=== PATIENT | male | born 1990 | race Caucasian/White ===

== ENCOUNTER 2017-02-12 06:13 | Inpatient (IN) | payer BC, OTHER ==
[~2017-02-12] VITALS: Ht 177.8 cm; Wt 83.0 kg
--- NOTE | 2017-02-12 06:46 | EMERGENCY ROOM VISIT NOTE ---
History Report prepared by Karely: Theresa Glover Under the Supervision of: Dr. Maurice Matute M.D. 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 Per police , the patient called Crisis and reported that he wanted to hang himself. When police arrived on scene they report that he was gagging and a belt was set up in his bedroom. The patient states that he was talking to Crisis on speaker phone and had the rope around his neck and dropped to his knees and decided that he wanted to . He reports that he lost consciousness and saw colors. He notes that he has wanted to kill himself every day for the last 9 years and reports that 9 years ago he made an attempt at suicide. The patient states that he has a history of depression and has a psychiatrist that prescribed Trazadome to sleep. He reports that the medication doesn't work and he has not been able to sleep. He notes that he has been drinking tonight. The patient states that he took something for 1 week that his psychiatrist prescribed him but he did not like it. He states "there is a reason I don't own a gun because I would only own it for a day. 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 Please see Additional Medical History Sheet. Past Medical & Surgical Medical Problems: (1) Depression Family History No pertinent family history stated. Social History Smoking Status: Current Every Day Smoker Alcohol Use: occasionally Drug Use: marijuana Marital Status: single Housing Status: lives alone Occupation Status: employed Current/Historical Medications Scheduled Trazodone Hcl (Trazodone), 50 MG PO HS Allergies Coded Allergies: No Known Allergies (Unverified , 02/12/17) Physical Exam Vital Signs Date Time Temp Pulse Resp B/P (MAP) Pulse Ox O2 Delivery O2 Flow Rate FiO2 02/12/17 11:50 36.7 88 18 134/77 96 02/12/17 09:25 88 18 134/77 96 Room Air 6/9/17 06:20 36.7 98 22 137/77 93 Room Air Physical Exam GENERAL: Patient awake, alert, oriented x 3. Patient follows commands. Patient does not appear toxic. Patient is adequately hydrated and well- nourished. SKIN: No erythema, pallor, cyanosis or rash HEENT: Normal head, pupils equal, reactive to light and accommodation, some injection/erythema of both eyes. Ears normal. Oral cavity and posterior pharynx appear normal. Neck: Without adenopathy, no neck vein distention, patient has multiple red abrasions on the right side of his neck, carotids are strong and equal bilaterally. LUNGS: Clear to auscultation. No wheezes, no rales, no rhonchi. HEART: No murmurs. No gallops. No rubs ABDOMEN: No masses, no rebound, no hepatomegaly or splenomegaly. EXTREMITIES: No signs of infection or trauma. No pedal or pretibial edema. No calf or thigh tenderness. NEUROLOGIC: Cranial nerves II-XII within normal limits. No gross motor sensory function deficits. PSYCH: Patient is awake, alert, and despondent. Medical Decision & Procedures ER Provider Diagnostic Interpretation: CT results are interpretations by the radiologist and per my review. CT SCAN OF THE CERVICAL SPINE FINDINGS: Skeletal structures: The skeletal structures are well mineralized. There is no evidence of fracture or subluxation involving the cervical spine. Vertebral body height and alignment are maintained. There is straightening of cervical lordosis with reversal centered at C4. The odontoid process and lateral masses are intact. The atlantoaxial articulation is preserved. The spinous processes appear intact. There is partial fusion of the left first and second ribs. Intervertebral discs: The disc spaces are well maintained. Central canal: Widely patent. Soft tissues: The prevertebral and paraspinous soft tissues are within normal limits. Calvarium: The visualized calvarium at the skull base appears intact. Brain parenchyma: Partially visualized brain parenchyma the skull base is within normal limits. Sinuses and mastoids: The visualized paranasal sinuses are clear. The mastoid air cells are well pneumatized. Lung apices: Clear as visualized. IMPRESSION: There is no evidence of fracture or subluxation involving the cervical spine. Electronically signed by: Kevin Jefferson M.D. 02/12/2017 7:49 AM Dictated Date/Time: 02/12/2017 7:46 AM Laboratory Results 02/12/17 07:20 02/12/17 07:20 Test 02/12/17 00:00 02/12/17 07:20 Urine Color YELLOW Urine Appearance CLEAR (CLEAR) Urine pH 6.0 (4.5-7.5) Urine Specific Onward 1.020 (1.000-1.030) Urine Protein NEG (NEG) Urine Glucose (UA) NEG (NEG) Urine Ketones NEG (NEG) Urine Occult Blood NEG (NEG) Urine Nitrite NEG (NEG) Urine Bilirubin NEG (NEG) Urine Urobilinogen NEG (NEG) Urine Leukocyte Esterase NEG (NEG) Urine Opiates Screen NEG (NEG) Urine Methadone, Qualitative NEG (NEG) Urine Barbiturates NEG (NEG) Urine Phencyclidine (PCP) Level NEG (NEG) Ur Amphetamine/Methamphetamine NEG (NEG) MDMA (Ecstasy) Screen NEG (NEG) Urine Benzodiazepines Screen NEG (NEG) Urine Cocaine Metabolite NEG (NEG) Urine Marijuana (THC) NEG (NEG) Red Blood Count 5.79 M/uL (4.7-6.1) Mean Corpuscular Volume 86.4 fL (80-100) Mean Corpuscular Hemoglobin 28.8 pg (25-34) Mean Corpuscular Hemoglobin Concent 33.4 g/dl (32-36) RDW Standard Deviation 40.1 fL (36.4-46.3) RDW Coefficient of Variation 12.6 % (11.5-14.5) Mean Platelet Volume 9.9 fL (7.4-10.4) Anion Gap 14.0 mmol/L (3-11) Est Creatinine Clear Calc Drug Dose 122.5 ml/min Estimated GFR () 127.7 Estimated GFR (Non- 110.2 BUN/Creatinine Ratio 10.6 (10-20) Calcium Level 8.0 mg/dl (8.5-10.1) Total Bilirubin 0.2 mg/dl (0.2-1) Aspartate Amino Transf (AST/SGOT) 35 U/L (15-37) Alanine Aminotransferase (ALT/SGPT) 55 U/L (12-78) Alkaline Phosphatase 84 U/L (45-117) Total Protein 7.2 gm/dl (6.4-8.2) Albumin 3.9 gm/dl (3.4-5.0) Globulin 3.3 gm/dl (2.5-4.0) Albumin/Globulin Ratio 1.2 (0.9-2) Thyroid Stimulating Hormone (TSH) 1.120 uIu/ml (0.300-4.500) Chemistry Specimen Hemolysis Ethyl Alcohol mg/dL 146.0 mg/dl (0-3) Laboratory results as stated above per my review. ECG Indication: other (suicide attempt) Rate (beats per minute): 78 Rhythm: normal sinus Findings: nonspecific-ST abn, no ectopy ED Course 0626: Past medical records reviewed. The patient was evaluated in room A7. A complete history and physical examination was performed. 1056: I had a discussion with the nurse liason from psychiatry. The patient has decided to come into the hospital on a 201. 1236: Upon reevaluation, the patient appeared to have improvement of his symptoms. I discussed today's findings with the patient. He verbalized agreement of the treatment plan. The patient will be managed inpatient for psychiatric care. Medical Decision Differential diagnosis includes depression, insomnia, suicidality, neck trauma. Medication Reconciliation: I attest that I have personally reviewed the patient' s current medication list. Blood Pressure Screening: Patient was found to have a slightly elevated blood pressure due to circumstances. I do not believe that the patient requires hypertension monitoring. The patient was evaluated for vascular or skeletal injuries to his neck. CT was negative. Multiple other labs were obtained. The patient is severely depressed and suicidal. The patient will require further psychiatric evaluation in the hospital. The patient did accept a 201. I discussed care with the patient and with the psychiatric liaison nurse. Impression Primary Impression: Depression Additional Impression: Suicidal ideation Scribe Attestation The scribe's documentation has been prepared under my direction and personally reviewed by me in its entirety. I confirm that the note above accurately reflects all work, treatment, procedures, and medical decision making performed by me. Departure Information Dispostion Mental Health Acute Care Referrals [facility] (PCP) Patient Instructions My [facility] Problem Qualifiers
[2017-02-12 07:31] LABS: MEAN CELL VOLUME 86.4 fL (80-100); MEAN CORPUSCULAR HEMOGLOBIN 28.8 pg (25-34); MEAN CORPUSCULAR HGB CONC 33.4 g/dl (32-36); MEAN PLATELET VOLUME 9.9 fL (7.4-10.4); PLATELET COUNT 233 K/uL (130-400); RED BLOOD COUNT 5.79 M/uL (4.7-6.1); WHITE BLOOD COUNT 7.33 K/uL (4.8-10.8)
[2017-02-12 07:44] LABS: URINE APPEARANCE CLEAR (CLEAR); URINE BILIRUBIN NEG (NEG); URINE COLOR YELLOW; URINE NITRITE NEG (NEG); UROBILINOGEN NEG (NEG)
[2017-02-12 07:50] LABS: MANUAL MICROSCOPIC REQUIRED? NO; REVIEW REQ? NO
--- NOTE | 2017-02-12 07:50 | DIAGNOSTIC IMAGING REPORT ---
CT SCAN OF THE CERVICAL SPINE CLINICAL HISTORY: Attempted hanging. COMPARISON STUDY: No priors. TECHNIQUE: CT scan of the cervical spine is performed from the skull base to the upper thoracic spine. Images are reviewed in the axial, sagittal, and coronal planes. IV contrast was not administered for this examination. CT DOSE: 301.18 mGy.cm FINDINGS: Skeletal structures: The skeletal structures are well mineralized. There is no evidence of fracture or subluxation involving the cervical spine. Vertebral body height and alignment are maintained. There is straightening of cervical lordosis with reversal centered at C4. The odontoid process and lateral masses are intact. The atlantoaxial articulation is preserved. The spinous processes appear intact. There is partial fusion of the left first and second ribs. Intervertebral discs: The disc spaces are well maintained. Central canal: Widely patent. Soft tissues: The prevertebral and paraspinous soft tissues are within normal limits. Calvarium: The visualized calvarium at the skull base appears intact. Brain parenchyma: Partially visualized brain parenchyma the skull base is within normal limits. Sinuses and mastoids: The visualized paranasal sinuses are clear. The mastoid air cells are well pneumatized. Lung apices: Clear as visualized. IMPRESSION: There is no evidence of fracture or subluxation involving the cervical spine. Electronically signed by: Kevin Jefferson M.D. 02/12/2017 7:49 AM Dictated Date/Time: 02/12/2017 7:46 AM
[2017-02-12 07:54] LABS: BUN/CREATININE RATIO 10.6 (10-20); CREATININE 0.96 mg/dl (0.60-1.40); POTASSIUM 3.2 mmol/L (3.5-5.1)
[2017-02-12 08:02] LABS: ALB/GLOB RATIO 1.2 (0.9-2); THYROID STIMULATING HORMONE 1.12 uIu/ml (0.300-4.500)
[2017-02-12 08:09] LABS: BENZODIAZEPINE, URINE NEG (NEG); COCAINE,URINE NEG (NEG); PHENCYCLIDINE, URINE NEG (NEG)
[2017-02-12] MEDS ORDERED: TRAZ50TA35 PO (11:26)
[2017-02-12 11:50] VITALS: O2SAT 96
[2017-02-12 12:47] VITALS: BP 134/77; TEMP 36.7; BMI 26.3
[2017-02-12] MEDS ORDERED: ALUMINUM/MAGNESIUM SUSP 30 ML UDC PO PRN (13:45)
[2017-02-12] MEDS ORDERED: ACETAMINOPHEN 325 MG TAB PO PRN (13:45)
[2017-02-12] MEDS ORDERED: SODIUM CHLORIDE 0.65% NA SOLN 45 ML (OCEAN) PRN (13:45)
[2017-02-12] MEDS ORDERED: LORAZEPAM 1 MG TAB PO PRN (13:45)
[2017-02-12] MEDS ORDERED: MAGNESIUM HYDROXIDE SUSP 30 ML UDC PO PRN (13:45)
[2017-02-12] MEDS ORDERED: BISMUTH SUBSALICYLATE PER ML OMNICELL CHARGE PO PRN (13:45)
[2017-02-12] MEDS ORDERED: NICOTINE POLACRILEX 2 MG GUM MT PRN (13:45)
[2017-02-12] MEDS ORDERED: hydrOXYzine HCL 25 MG TAB PO PRN (13:45)
[2017-02-12] MEDS ORDERED: PNEUMOCOCCAL ADMINISTRATION CHARGE ONE (14:15)
[2017-02-12] MEDS ORDERED: PNEUMOCOCCAL POLYSACCHARIDES 25 MCG/0.5 ML VIAL/SYR IM. ONE (14:15)
--- NOTE | 2017-02-12 14:29 | Psychiatric History & Physical ---
History Date of Service Feb 12, 2017. Identifying Data Patricio Batista is a 26-year-old male who currently lives in [place], [place]. Patricio Batista was admitted on a 201 voluntary commitment. Patient is admitted from home. The patient was brought to the ED by the police. Information provided by the patient is considered to be reliable . Chief Complaint "Depression" and recent suicide attempt. History of Present Illness The patient is a 26-year-old man who was admitted to the inpatient psychiatric unit this afternoon from the emergency department. According to the patient, and according to the record, the patient had been drinking heavily last night and, while intoxicated, decided to make a suicide attempt by hanging himself with a belt. He says that he had actually formed a noose belt and had wrapped around his neck. However, he was also on the telephone with a suicide hotline, reported ambivalence, and provided his home address to the suicide hotline. The police responded and transported the patient to the emergency department. The patient reports that he has been feeling depressed, 2 various extents, for approximately 9 years. He says that when he was a sophomore in high school and his family moved from [place], near [facility], and he became depressed after losing all of his friends and being "the new kid." He says that since that time he has had recurrent thoughts of suicide, although he says that these thoughts are usually not associated with any plan or intent. He does say that several months ago he took a deliberate overdose of medications, but then very quickly changed his mind and induced emesis. This attempt evidently went unreported. He denies any other suicide attempts, apart from the episode of overdose and the episode that immediately preceded the admission. Reported symptoms of depression include apathetic, anergy, anhedonia (unless drinking with friends), depressed mood, and chronic initial insomnia. He also describes frequent rumination and self-reproachment. The clinical picture is his complicated by the fact that the patient acknowledges a long-standing history of heavy use of alcohol. He says that he drinks 4 or 5 nights a week, and consumes alcohol in quantities that range from 5-8 mixed drinks drinks per episode. He says that typically he drinks to the point of intoxication. On the evening prior to admission the patient reports that he drank several "Sparkman iced teas," as well as several rum and Coke drinks, and several other alcoholic beverages. He says that his drinks of choice include Rum, whiskey, and beer. In addition, he smokes marijuana fairly regularly, sometimes daily, and when using he consumes about a joint" per episode. He enjoys the support of his parents who live locally, his girlfriend , who lives out of town for the summer, as well as a number of other friends. 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 He says that initially he did fairly well and maintained a 3.2 average, but in the past year or so has been going to classes less and less, and eventually dropped out earlier this spring after he had stopped going to classes completely. He is currently in treatment with an outpatient psychiatrist and has been prescribed trazodone for sleep and an antidepressant that he believes may be Lexapro, although he is not taking the Lexapro because he does not feel that it helps. ("I took it for about 3 weeks, but it wasn't doing anything."). He says the trazodone does help him sleep. Past Psychiatric History Current OP Treatment: psychiatrist Prior OP Treatment: psychiatrist Prior Psych Hospitalizations: none Access to a Gun: No Suicide Attempts: Yes Past Medication Trials Trazodone 50 mg at bedtime for sleep is a current medication. He had previously been prescribed Lexapro (he believes, but is not certain) but stopped taking it after a 3 week trial because he feels it was not effective. He does not recall the dose, and I was able to explain to him that off on the dose of medication has to be increased over time in order to achieve efficacy and the 3 weeks might not have been enough time. He accepted this explanation Additional Notes Patient reports a history of 2 suicide attempts, one several months ago in which she took an unspecified quantity of an unspecified medication for delivered overdose. However, he acknowledges that he was ambivalent and quickly changed his mind and engaged in self-induced emesis. Last night, while drinking, he fashioned a noose out of a belt and was contemplating suicide. However, he contacted a help line, expressed ambivalence, and agreed to allow the helpline to give the police his address. Today, he says he has no suicidal plan or intent, but as it is a daily occurrence with him, he is still having suicidal thoughts. Past Medical/Surgical History History of Concussion/Seizure: No (1) Depression (2) Suicidal ideation (3) Alcohol dependence (4) Cannabis abuse (5) Tobacco use disorder Allergies Allergies: Coded Allergies: No Known Allergies (Unverified , 02/12/17) Home Medications Scheduled Trazodone Hcl (Trazodone), 50 MG PO HS Family History History of Suicide: No History of Substance Abuse: Yes He has an uncle who is a "recovering alcoholic." The uncle has been sober for 30+ years, and he considers him to be a model for alcohol cessation. Alcohol Use Alcohol Use In Past 12 Months: Yes (5-6 mixed drinks, 4-5 nights/week) AUDIT Total Score: 19 Smoking Use Smoking Status: Current Every Day Smoker The patient says he smokes approximately half a pack of cigarettes daily. On those days that he is drinking he may consume as much as a pack of cigarettes. He says that he would like to quit, but doesn't feel ready at this time. We discussed smoking cessation strategies and the patient was receptive. Substance History The patient smokes marijuana on a fairly regular basis, notes that on certain she may smoke on a daily basis. He estimates that he uses approximately "a joint" or "a blunt" on each occasion. Personal History Childhood: For much of his childhood in [facility]. When he was a sophomore in high school he moved to [facility], circumstances that caused him a great deal of distress because he left all his lifetime friends behind. He came to [place] in order to go to college at [employer]. Younger brother is also a student at [employer], and his parents moved to [place] in order to be close to HER-2 sons. 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 He describes his childhood as "really good." Review of Systems Constitutional: denies no symptoms reported, denies see HPI, denies chills, denies diaphoresis, denies fever, denies malaise, denies weakness, denies other Eyes: denies: no symptoms, as stated in HPI, eye pain, tearing, itching, redness, discharge, double vision, visual changes, blurred vision, photophobia, other ENT: denies: no symptoms reported, see HPI, ear pain, ear discharge, loss of hearing, tinnitus, nasal pain, nasal congestion, rhinorrhea, epistaxis, sore throat, stidor, throat swelling, mouth pain, mouth swelling, dental pain, gum swelling, other Cardiovascular: denies: no symptoms reported, see HPI, chest pain, chest tightness, chest pressure, diaphoresis, palpitations, syncope, other Respiratory: denies: no symptoms reported, see HPI, cough, orthopnea, short of breath, stridor, wheezing, sputum production, cyanosis, WHITE, PND, other Gastrointestinal: denies no symptoms reported, denies see HPI, denies abdominal pain, denies constipation, denies diarrhea, denies nausea, denies vomiting, denies other Genitourinary - Male: denies: no symptoms, see HPI, rash, amenorrhea, penile itching, penile discharge, testicular pain, testicular swelling, impotence, other Musculoskeletal: denies no symptoms reported, denies see HPI, denies back pain , denies gout, denies joint pain, denies joint swelling, denies muscle pain, denies muscle stiffness, denies neck pain, denies other Integumentary: denies no symptoms reported, denies see HPI, denies change in color, denies change in hair/nails, denies dryness, denies lesions, denies lumps , denies rash, denies other Neurologic: denies: no symptoms, see HPI, headache, numbness, paresthesias, pre -existing deficit, seizure, tingling, tremors, general weakness, tics, focal weakness, vertigo, lethargy, memory loss, dizziness, other Endocrine: denies: no symptoms, as stated in HPI, cold intolerance, heat intolerance, hair changes, goiter, polydipsia, polyuria, skin changes, other Hematologic / Lymphatic: denies: no symptoms, as stated in HPI, abnormal clotting, adenopathy, anemia, easy bleeding, easy bruising, gums bleeding, petechiae, other Examination Vital Signs Vital Signs Past 12 Hours Date Time Temp Pulse Resp B/P (MAP) Pulse Ox O2 Delivery O2 Flow Rate FiO2 02/12/17 12:47 36.7 18 134/77 02/12/17 11:50 36.7 88 18 134/77 96 02/12/17 09:25 88 18 134/77 96 Room Air 02/12/17 06:20 36.7 98 22 137/77 93 Room Air Laboratory Results Last 24 Hours Test 02/12/17 00:00 02/12/17 07:20 Urine Color YELLOW Urine Appearance CLEAR Urine pH 6.0 Urine Specific Shokan 1.020 Urine Protein NEG Urine Glucose (UA) NEG Urine Ketones NEG Urine Occult Blood NEG Urine Nitrite NEG Urine Bilirubin NEG Urine Urobilinogen NEG Urine Leukocyte Esterase NEG Urine Opiates Screen NEG Urine Methadone, Qualitative NEG Urine Barbiturates NEG Urine Phencyclidine (PCP) Level NEG Ur Amphetamine/Methamphetamine NEG MDMA (Ecstasy) Screen NEG Urine Benzodiazepines Screen NEG Urine Cocaine Metabolite NEG Urine Marijuana (THC) NEG White Blood Count 7.33 K/uL Red Blood Count 5.79 M/uL Hemoglobin 16.7 g/dL Hematocrit 50.0 % Mean Corpuscular Volume 86.4 fL Mean Corpuscular Hemoglobin 28.8 pg Mean Corpuscular Hemoglobin Concent 33.4 g/dl RDW Standard Deviation 40.1 fL RDW Coefficient of Variation 12.6 % Platelet Count 233 K/uL Mean Platelet Volume 9.9 fL Sodium Level 146 mmol/L Potassium Level 3.2 mmol/L Chloride Level 110 mmol/L Carbon Dioxide Level 22 mmol/L Anion Gap 14.0 mmol/L Blood Urea Nitrogen 10 mg/dl Creatinine 0.96 mg/dl Est Creatinine Clear Calc Drug Dose 122.5 ml/min Estimated GFR () 127.7 Estimated GFR (Non- 110.2 BUN/Creatinine Ratio 10.6 Random Glucose 101 mg/dl Calcium Level 8.0 mg/dl Total Bilirubin 0.2 mg/dl Aspartate Amino Transf (AST/SGOT) 35 U/L Alanine Aminotransferase (ALT/SGPT) 55 U/L Alkaline Phosphatase 84 U/L Total Protein 7.2 gm/dl Albumin 3.9 gm/dl Globulin 3.3 gm/dl Albumin/Globulin Ratio 1.2 Thyroid Stimulating Hormone (TSH) 1.120 uIu/ml Chemistry Specimen Hemolysis Ethyl Alcohol mg/dL 146.0 mg/dl Mental Examination During interview pt is: cooperative Appearance: appropriately dressed, appropriately groomed Eye contact is: poor Motor behavior is: steady gait & station, no abnormal motor movements, psychomotor retardation Speech: other (Sparse and non-spontaneous, although he will elaborate with questioning.) Affect: depressed, flat Mood is: depressed Thought process: goal directed Suicidal thought are: present, Plan: denied, Intent: denied Homicidal thoughts are: denied, Plan: denied, Intent: denied Hallucinations: denies auditory, denies visual Cognition: memory grossly intact Intelligence estimated to be: above average Insight: good Judgement: good The patient has insight into the fact that his habitual abuse of alcohol is clearly contributing to his depressive symptoms. He freely acknowledges that he needs to stop drinking as part of his effort to overcome depression. At the same time, he seems somewhat unwilling to accept the fact that he may need psychotropic medications for depression. Impression / Recommendations Risk Factors Assessment Male: Yes : Yes /single/: Yes Higher / Fall in social status: No Access to guns: No Health problems: No Mental Health Diagnoses: Yes Substance use disorders: Yes Previous attempt: Yes Previous attempt;highly lethal: No Previous attempt; planned: Yes Previous attempt; didn't tell: Yes Family history of suicide: No Previous psychiatric stay: No Hopelessness: Yes Smoker: Yes Protective Factors Assessment Yazidi beliefs: No : No Responsible for young children: No Employed: Yes Stable relationships: Yes Supportive family: Yes Good rapport with provider: Yes Recommendations (1) Depression (2) Suicidal ideation (3) Alcohol dependence (4) Cannabis abuse (5) Tobacco use disorder CPT Code Initial Hospital Care: [id number] Problem Qualifiers (1) Depression: Depression Type: major depressive disorder Major depression recurrence: recurrent Active/Remission status: currently active Major depression episode severity: severe Psychotic features: without psychotic features Qualified Codes: F33.2 - Major depressive disorder, recurrent severe without psychotic features (2) Alcohol dependence: Substance use status: alcohol-induced mood disorder Qualified Codes: 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
[2017-02-12 16:10] VITALS: BP 132/74; PULSE 75; TEMP 36.6
[2017-02-12 20:30] VITALS: BP 147/83; PULSE 68; TEMP 37
[2017-02-12] MEDS: TRAZODONE HCL 50 MG TAB PO SCH (21:12)
[2017-02-13 07:00] VITALS: BP_SYST 111; BP_SYST 122; BP_DIAS 71; BP_DIAS 84; PULSE 64; PULSE 67; TEMP 36.5
[2017-02-13 07:01] VITALS: Ht 177.8 cm; Wt 83.0 kg
[2017-02-13] MEDS: NICOTINE 14 MG/24 HR TDSY TD SCH (08:31)
[2017-02-13 08:32] VITALS: BP 125/86; PULSE 83
[2017-02-13 12:16] VITALS: BP 144/81; PULSE 53; TEMP 36.6
--- NOTE | 2017-02-13 13:55 | Psychiatric Progress Notes ---
Progress Note Date of Service Feb 13, 2017. Interval History Patient admitted to psychiatric unit after attempting to hang self with a belt after consuming significant quantity of alcohol. Chronic history of suicidal thoughts which estimates has been present for about 6 years on almost a daily basis. He describes transient suicidal thoughts last minutes where he will be triggered by things such as walking past a tall building on campus and thinking about jumping off or being passed by a bus and thinking of jumping out in front of it. He overcomes acting on suicidal thoughts by thinking of impact on his family. Chief Complaint "A little better". Subjective Patient was seen & assessed interval progress reviewed with Treatment Team. Patient reports that his mood is slightly better. Reports that he is feeling more hopeful. Chronic history of suicidal thoughts which estimates has been present for about 6 years on almost a daily basis. He describes transient suicidal thoughts last minutes where he will be triggered by things such as walking past a tall building on campus and thinking about jumping off or being passed by a bus and thinking of jumping out in front of it. He overcomes acting on suicidal thoughts by thinking of impact on his family. Denies any thoughts to harm himself or others today. Reports that he typically drinks 5 to 6 drinks about 4 to 5 days per week and on night of admission had consumed a pitcher of rum and coke, punch bowl of beer and 4 to 5 [place] iced tea. Review of Systems Psych: denies symptoms other than stated above Constitutional: denied Cardiovascular: denied GI: denied Neurologic: denied Remainder of 10 body systems also reviewed and denied other than noted above. Sleep Information Total Hours of Sleep: 7.25 Meal Information Percent of Breakfast Consumed: 100 Percent of Lunch Consumed: 100 Percent of Dinner Consumed: 80 Mental Status Exam During interview pt is: cooperative Appearance: appropriately dressed, appropriately groomed Eye contact is: poor Motor behavior is: steady gait & station, no abnormal motor movements, psychomotor retardation Speech: other (Sparse and non-spontaneous, although he will elaborate with questioning.) Affect: depressed, flat Mood is: depressed Thought process: goal directed Suicidal thought are: present, Plan: denied, Intent: denied Homicidal thoughts are: denied, Plan: denied, Intent: denied Hallucinations: denies auditory, denies visual Cognition: memory grossly intact Intelligence estimated to be: above average Insight: good Judgement: good The patient has insight into the fact that his habitual abuse of alcohol is clearly contributing to his depressive symptoms. He freely acknowledges that he needs to stop drinking as part of his effort to overcome depression. At the same time, he seems somewhat unwilling to accept the fact that he may need psychotropic medications for depression. Plan (1) Depression 02/13 - discussed antidepressant options with patient. Brother has a history of Bipolar disorder and anxiety. Reviewed symptoms of a manic episode with patient and he denies symptoms other than overlapping symptoms of anxiety when stressed including racing thoughts and troubles getting to sleep but he denies that he can go extended periods of time with very little sleep and/or have increased energy. Reviewed risk of triggering manic episode or mood becoming more unstable due to family history of Bipolar if antidepressant medication initiated. Reviewed depressant effects of alcohol for up to a month and interference with actions of antidepressant medication. Patient wishes to maintain sobriety for 1 month and reassess for presence of depression after a month of no alcohol use. I reinforced importance of fpc follow up to reassess for depression as well as to monitor for and encourage sobriety. (2) Suicidal ideation 02/13 - Reviewed with patient disinhibiting effects of alcohol as well as depressant effects and high rates of alcohol use surrounding suicide attempts. (3) Alcohol dependence 02/13 - Brief intervention with patient discussing heavy alcohol use and patient receptive to abstaining from alcohol use and discussed treatment options and patient will consider. Reviewed family history with uncle having history of alcohol use. (4) Cannabis abuse (5) Tobacco use disorder Discharge / Aftercare Planning Primary Care Physician: Name: NONE Therapist: Name: NONE Auto Claims Adjuster: Name: NONE Visit Code E&M Code: 98481 Risk Factors Assessment Male: Yes : Yes /single/: Yes Higher / Fall in social status: No Health problems: No Mental Health Diagnoses: Yes Substance use disorders: Yes Previous attempt: Yes Previous attempt;highly lethal: No Previous attempt; planned: Yes Previous attempt; didn't tell: Yes Family history of suicide: No Previous psychiatric stay: No Hopelessness: Yes Smoker: Yes Protective Factors Assessment Presybeterian beliefs: No : No Responsible for young children: No Employed: Yes Stable relationships: Yes Supportive family: Yes Good rapport with provider: Yes Data Vital Signs Last 24 Hrs: Date Time Temp Pulse Resp B/P (MAP) Pulse Ox O2 Delivery O2 Flow Rate FiO2 02/13/17 12:16 36.6 53 16 144/81 02/13/17 08:32 83 18 125/86 02/13/17 07:00 36.5 64 16 111/71 67 122/84 02/12/17 20:30 37.0 68 147/83 02/12/17 16:10 36.6 75 16 132/74 Meds Administered Last 24 Hrs: Meds Administered (Past 24Hrs) Medications (Trade) Dose Ordered Sig/Kelsey Route Start Time Stop Time Status Last Admin Dose Admin Trazodone HCl (Desyrel Tab) 50 mg HS PO 02/12/17 22:00 03/14/17 21:59 02/12/17 21:12 50 MG Problem Qualifiers (1) Depression: Depression Type: major depressive disorder Major depression recurrence: recurrent Active/Remission status: currently active Major depression episode severity: severe Psychotic features: without psychotic features Qualified Codes: F33.2 - Major depressive disorder, recurrent severe without psychotic features (2) Alcohol dependence: Substance use status: alcohol-induced mood disorder Qualified Codes: 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
[2017-02-13 17:42] VITALS: BP_SYST 118; BP_SYST 144; BP_DIAS 78; BP_DIAS 81; PULSE 53; PULSE 67; PULSE 72; TEMP 36.6
[2017-02-13 21:04] VITALS: BP 113/70; PULSE 62; TEMP 36.8
[2017-02-13] MEDS: TRAZODONE HCL 50 MG TAB PO SCH (22:00)
[2017-02-14] MEDS: hydrOXYzine HCL 25 MG TAB PO PRN ×2 (01:17→21:50)
[2017-02-14 06:53] VITALS: BP_SYST 119; BP_SYST 99; BP_DIAS 62; BP_DIAS 78; PULSE 58; PULSE 67; TEMP 36.3
[2017-02-14] MEDS: NICOTINE 14 MG/24 HR TDSY TD SCH (08:29)
[2017-02-14 08:49] VITALS: BP 126/84; PULSE 57; TEMP 36.6
[2017-02-14 12:37] VITALS: BP 106/66; PULSE 51
[2017-02-14] MEDS ORDERED: MIRTAZAPINE TAB 15 MG TAB PO PRN (14:45)
--- NOTE | 2017-02-14 14:45 | Psychiatric Progress Notes ---
Progress Note Date of Service Feb 14, 2017. Interval History Patient admitted to psychiatric unit after attempting to hang self with a belt after consuming significant quantity of alcohol. Chronic history of suicidal thoughts which estimates has been present for about 6 years on almost a daily basis. He describes transient suicidal thoughts last minutes where he will be triggered by things such as walking past a tall building on campus and thinking about jumping off or being passed by a bus and thinking of jumping out in front of it. He overcomes acting on suicidal thoughts by thinking of impact on his family. Chief Complaint "Feel tired". Subjective Patient was seen & assessed interval progress reviewed with Treatment Team. Patient reports that he had struggled to get to sleep last night and took a Vistaril around 1am and was then able to fall asleep but this has left him feeling sedated this morning. He had declined to take Trazodone at bedtime as he was fearful of risk of priapism and risk of impotence associated with this that was discussed with him yesterday. Mood continues to feel depressed. Patient has been isolating more from peers and withdrawn in his room today which he attributes to sedation. Review of Systems Psych: denies symptoms other than stated above Constitutional: Decreased sleep last night but overly fatigued today. Appetite good. Cardiovascular: denied GI: denied Neurologic: denied Remainder of 10 body systems also reviewed and denied other than noted above. Sleep Information Total Hours of Sleep: 4.50 Meal Information Percent of Breakfast Consumed: 100 Percent of Lunch Consumed: 0 Percent of Dinner Consumed: 100 Mental Status Exam During interview pt is: cooperative Appearance: appropriately dressed, appropriately groomed Eye contact is: poor Motor behavior is: steady gait & station, no abnormal motor movements, psychomotor retardation Speech: other (Sparse and non-spontaneous, although he will elaborate with questioning.) Affect: depressed, flat Mood is: depressed Thought process: goal directed Suicidal thought are: present, Plan: denied, Intent: denied Homicidal thoughts are: denied, Plan: denied, Intent: denied Hallucinations: denies auditory, denies visual Cognition: memory grossly intact Intelligence estimated to be: above average Insight: good Judgement: good The patient has insight into the fact that his habitual abuse of alcohol is clearly contributing to his depressive symptoms. He freely acknowledges that he needs to stop drinking as part of his effort to overcome depression. At the same time, he seems somewhat unwilling to accept the fact that he may need psychotropic medications for depression. Plan (1) Depression 02/13 - discussed antidepressant options with patient. Brother has a history of Bipolar disorder and anxiety. Reviewed symptoms of a manic episode with patient and he denies symptoms other than overlapping symptoms of anxiety when stressed including racing thoughts and troubles getting to sleep but he denies that he can go extended periods of time with very little sleep and/or have increased energy. Reviewed risk of triggering manic episode or mood becoming more unstable due to family history of Bipolar if antidepressant medication initiated. Reviewed depressant effects of alcohol for up to a month and interference with actions of antidepressant medication. Patient wishes to maintain sobriety for 1 month and reassess for presence of depression after a month of no alcohol use. I reinforced importance of alf follow up to reassess for depression as well as to monitor for and encourage sobriety. 02/14 - patient declines to consider an antidepressant medication today but is willing to consider at low dose of Remeron PRN for insomnia as a substitute for Trazodone and reviewed with patient that this medication is classified as an antidepressant.Initiate Remeron at 15mg every bedtime PRN for insomnia. (2) Suicidal ideation 02/13 - Reviewed with patient disinhibiting effects of alcohol as well as depressant effects and high rates of alcohol use surrounding suicide attempts. (3) Alcohol dependence 02/13 - Brief intervention with patient discussing heavy alcohol use and patient receptive to abstaining from alcohol use and discussed treatment options and patient will consider. Reviewed family history with uncle having history of alcohol use. 02/14 - The patient's AUDIT score suggests problematic drinking (Zone III WHO). Brief intervention was offered and accepted. Intervention was greater than 5 min in length. Brief interventions include: 1. Assess Readiness to Quit, 2. Advise: Help Patient to Reduce or Abstain from Alcohol, 3. Agree: Set Specific, Feasible Goals, 4. Assist: Anticipate barriers, Problem-Solving Solutions. Social work to 5. Arrange: Referrals to appropriate treatment. Summary of intervention: The patient is in precontemplation stage with regards to transtheoretical model of change. The patient is advised to decrease alcohol consumption due to depressant effects and risk of interactions with prescription medications. The patient agreed to outpatient therapy referral including [facility] or other alternative program and will be provided with recovery materials to continue to education self on how to cope with their condition without drinking. (4) Cannabis abuse (5) Tobacco use disorder Discharge / Aftercare Planning Primary Care Physician: Name: NONE Therapist: Name: NONE Experimental Aircraft Mechanic: Name: NONE Visit Code E&M Code: 33614 Risk Factors Assessment Male: Yes : Yes /single/: Yes Higher / Fall in social status: No Health problems: No Mental Health Diagnoses: Yes Substance use disorders: Yes Previous attempt: Yes Previous attempt;highly lethal: No Previous attempt; planned: Yes Previous attempt; didn't tell: Yes Family history of suicide: No Previous psychiatric stay: No Hopelessness: Yes Smoker: Yes Protective Factors Assessment Worship beliefs: No : No Responsible for young children: No Employed: Yes Stable relationships: Yes Supportive family: Yes Good rapport with provider: Yes Data Vital Signs Last 24 Hrs: Date Time Temp Pulse Resp B/P (MAP) Pulse Ox O2 Delivery O2 Flow Rate FiO2 02/14/17 12:37 51 18 106/66 02/14/17 08:49 36.6 57 16 126/84 02/14/17 06:53 36.3 58 16 99/62 67 119/78 02/13/17 21:04 36.8 62 16 113/70 02/13/17 17:42 36.6 72 14 118/78 Meds Administered Last 24 Hrs: Meds Administered (Past 24Hrs) Medications (Trade) Dose Ordered Sig/Kelsey Route Start Time Stop Time Status Last Admin Dose Admin Miscellaneous (Remove Nicoderm Patch) 1 ea HS N/A 02/12/17 22:00 03/14/17 21:59 02/13/17 22:00 1 EA Trazodone HCl (Desyrel Tab) 50 mg HS PO 02/12/17 22:00 03/14/17 21:59 02/12/17 21:12 50 MG Problem Qualifiers (1) Depression: Depression Type: major depressive disorder Major depression recurrence: recurrent Active/Remission status: currently active Major depression episode severity: severe Psychotic features: without psychotic features Qualified Codes: F33.2 - Major depressive disorder, recurrent severe without psychotic features (2) Alcohol dependence: Substance use status: alcohol-induced mood disorder Qualified Codes: 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
[2017-02-14 17:28] VITALS: BP 153/86; PULSE 68; TEMP 36.8
[2017-02-14 20:24] VITALS: BP 127/78; PULSE 80
[2017-02-15 07:00] VITALS: BP_SYST 111; BP_SYST 120; BP_DIAS 75; BP_DIAS 81; PULSE 76; PULSE 80; TEMP 36.5
[2017-02-15 08:05] VITALS: BP 124/79; PULSE 72; PULSE 80; TEMP 36.5
[2017-02-15] MEDS: NICOTINE 14 MG/24 HR TDSY TD SCH (08:10)
--- NOTE | 2017-02-15 12:54 | Psychiatric Progress Notes ---
Progress Note Date of Service Feb 15, 2017. Interval History Patient admitted to psychiatric unit after attempting to hang self with a belt after consuming significant quantity of alcohol. Chronic history of suicidal thoughts which estimates has been present for about 6 years on almost a daily basis. He describes transient suicidal thoughts last minutes where he will be triggered by things such as walking past a tall building on campus and thinking about jumping off or being passed by a bus and thinking of jumping out in front of it. He overcomes acting on suicidal thoughts by thinking of impact on his family. Chief Complaint "I'm optimistic". Subjective Patient was seen & assessed interval progress reviewed with Treatment Team. Staff report the patient has been eating well, interacting with peers, and appropriately supportive of them. He has requested and received hydroxyzine 50 mg at bedtime for sleep. He states that his mood has improved since admission, which she attributes to sleeping at night and "not drinking." He says "alcohol is the reason I'm here," and says he has a plan to limit himself to a couple of drinks every time he goes out and to go out with someone else "so they can keep an eye on me." He says he does not really think he has a substance abuse problem, and does not need substance abuse treatment. He reports ongoing thoughts about , but says "no active suicidal thoughts," saying that he is "having interesting thought experiments on , likable with look like in certain situations." He talks about how long it would take somebody to fall and hit the ground if they jumped out of a window, and how that her body would look if they were relaxed versus tense during the fall. He says he "always thinks about stuff like this, so if your gonna keep me in here until this goes away, that's not gonna happen." He says his family visited" we talked about life and how good it is, which I'm not inclined to agree with. I'm a college dropout, lacks direction, don't know what options there are available to me." When reviewing recommendations for a family meeting and outpatient substance abuse treatment, he states "can I just get outta here without submitting to psychology?" Sleep Information Total Hours of Sleep: 9.75 Meal Information Percent of Breakfast Consumed: 100 Percent of Lunch Consumed: 0 Percent of Dinner Consumed: 100 Mental Status Exam During interview pt is: alert and oriented, cooperative (partially - somewhat flippant and dismissive attitude) Appearance: appropriately dressed, appropriately groomed Eye contact is: poor (does not make any eye contact, staring at a puzzle he is working on throughout the interview) Motor behavior is: steady gait & station, no abnormal motor movements, psychomotor retardation Speech: other (Sparse and non-spontaneous, although he will elaborate with questioning.) Affect: blunted Mood is: other ("I'm optimistic") Thought process: goal directed Thought content: cognitive distortions (reports ongoing thoughts of ) Suicidal thought are: present, Intent: denied Homicidal thoughts are: denied Hallucinations: denies auditory, denies visual Cognition: memory grossly intact Intelligence estimated to be: above average Insight: good Judgement: good Impression The patient has insight into the fact that his habitual abuse of alcohol is contributing to his depressive symptoms, but does not feel that he has a drinking problem or that he needs to stop drinking, and thinks he can just cut back. He is now refusing substance abuse treatment, and is unwilling to consider psychotropic medications for depression. Ongoing inpatient treatment is indicated as he remains at high risk of harm to himself if the above risk factors are not mitigated, given his very serious suicide attempt on admission, and the fact that nothing has changed with respect to his stressors, his depression, or his drinking. Plan (1) Depression 02/13 - discussed antidepressant options with patient. Brother has a history of Bipolar disorder and anxiety. Reviewed symptoms of a manic episode with patient and he denies symptoms other than overlapping symptoms of anxiety when stressed including racing thoughts and troubles getting to sleep but he denies that he can go extended periods of time with very little sleep and/or have increased energy. Reviewed risk of triggering manic episode or mood becoming more unstable due to family history of Bipolar if antidepressant medication initiated. Reviewed depressant effects of alcohol for up to a month and interference with actions of antidepressant medication. Patient wishes to maintain sobriety for 1 month and reassess for presence of depression after a month of no alcohol use. I reinforced importance of medical terminologist follow up to reassess for depression as well as to monitor for and encourage sobriety. 02/14 - patient declines to consider an antidepressant medication today but is willing to consider at low dose of Remeron PRN for insomnia as a substitute for Trazodone and reviewed with patient that this medication is classified as an antidepressant. Initiate Remeron at 15mg every bedtime PRN for insomnia. 02/15 - patient has been taking hydroxyzine at bedtime, but does not want to try mirtazapine, declining all antidepressants. Although he reports improved mood, he continues to endorse frequent thoughts of , and admits that nothing has changed with respect to his stressors. He will need a family meeting with parents, in order to review safety concerns and the recommendations for complete abstinence from alcohol and substance abuse treatment. We will also need to determine if he can return to see Dr. Lees, whom he only saw once months ago. (2) Suicidal ideation 02/13 - Reviewed with patient disinhibiting effects of alcohol as well as depressant effects and high rates of alcohol use surrounding suicide attempts. 02/15 - needs to work on safety plan and share with parents and family meeting. (3) Alcohol dependence 02/13 - Brief intervention with patient discussing heavy alcohol use and patient receptive to abstaining from alcohol use and discussed treatment options and patient will consider. Reviewed family history with uncle having history of alcohol use. Patient expresses motivation to stop drinking. He says that the problems of the only time he feels "close to normal" as when he is drinking heavily with friends. When drinking, he says he "comes out of his shell" and becomes funny, active, and relatively happy. 02/14 - The patient's AUDIT score suggests problematic drinking (Zone III WHO). Brief intervention was offered and accepted. Intervention was greater than 5 min in length. Brief interventions include: 1. Assess Readiness to Quit, 2. Advise: Help Patient to Reduce or Abstain from Alcohol, 3. Agree: Set Specific, Feasible Goals, 4. Assist: Anticipate barriers, Problem-Solving Solutions. Social work to 5. Arrange: Referrals to appropriate treatment. Summary of intervention: The patient is in precontemplation stage with regards to transtheoretical model of change. The patient is advised to decrease alcohol consumption due to depressant effects and risk of interactions with prescription medications. The patient agreed to outpatient therapy referral including [facility] or other alternative program and will be provided with recovery materials to continue to education self on how to cope with their condition without drinking. 02/15 - patient now stating he doesn't think he has a problem with drinking, and plans to continue drinking, but limiting the amount. He is now refusing the recommendations for substance abuse treatment, and is demonstrating very poor insight. Again reviewed with him the recommendations for complete abstinence from alcohol and for intensive outpatient substance abuse treatment. Encouraged him to consider this, and to discuss further with family during his family meeting. (4) Cannabis abuse We discussed the importance of avoiding marijuana use. (5) Tobacco use disorder The patient indicates ambivalent interest in smoking cessation. We are beginning a daily NicoDerm to prevent withdrawal. We'll also giving him Nicorette gum, as needed. Discharge / Aftercare Planning Primary Care Physician: Name: NONE Therapist: Name: NONE Road Design Engineer: Name: NONE Visit Code E&M Code: 54968 Risk Factors Assessment Male: Yes : Yes /single/: Yes Higher / Fall in social status: No Health problems: No Mental Health Diagnoses: Yes Substance use disorders: Yes Previous attempt: Yes Previous attempt;highly lethal: No Previous attempt; planned: Yes Previous attempt; didn't tell: Yes Family history of suicide: No Previous psychiatric stay: No Hopelessness: Yes Smoker: Yes Protective Factors Assessment Sabianism beliefs: No : No Responsible for young children: No Employed: Yes Stable relationships: Yes Supportive family: Yes Good rapport with provider: Yes Data Vital Signs Last 24 Hrs: Date Time Temp Pulse Resp B/P (MAP) Pulse Ox O2 Delivery O2 Flow Rate FiO2 02/15/17 08:05 36.5 72 16 124/79 80 02/15/17 07:00 36.5 76 16 120/81 80 111/75 02/14/17 20:24 80 16 127/78 02/14/17 17:28 36.8 68 18 153/86 Problem Qualifiers (1) Depression: Depression Type: major depressive disorder Major depression recurrence: recurrent Active/Remission status: currently active Major depression episode severity: severe Psychotic features: without psychotic features Qualified Codes: F33.2 - Major depressive disorder, recurrent severe without psychotic features (2) Alcohol dependence: Substance use status: alcohol-induced mood disorder Qualified Codes: 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
[2017-02-16] MEDS: NICOTINE 14 MG/24 HR TDSY TD SCH (07:51)
--- NOTE | 2017-02-16 15:07 | Psychiatric Progress Notes ---
Progress Note Date of Service Feb 16, 2017. Interval History Patient admitted to psychiatric unit after attempting to hang self with a belt after consuming significant quantity of alcohol. Chronic history of suicidal thoughts which estimates has been present for about 6 years on almost a daily basis. He describes transient suicidal thoughts last minutes where he will be triggered by things such as walking past a tall building on campus and thinking about jumping off or being passed by a bus and thinking of jumping out in front of it. He overcomes acting on suicidal thoughts by thinking of impact on his family. Chief Complaint "I'm bored here". Subjective Patient was seen & assessed interval progress reviewed with nursing. He reports no issues overnight, things this "is all overkill". Reviewed that he made a stated on his medical power of collections attorney document provided by the hospital that he indicated that he wants to donate organs but "they would within a week". He denied SI, states he thought it would be ironic if someone got his lungs or liver as he has been drinking and smoking alot. He felt his family meeting went fine and is agreeable to IOP. 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 Sleep Information Total Hours of Sleep: 8.00 Meal Information Percent of Breakfast Consumed: 100 Percent of Lunch Consumed: 100 Percent of Dinner Consumed: 100 Mental Status Exam During interview pt is: alert and oriented, cooperative (superficially) Appearance: appropriately dressed, appropriately groomed Eye contact is: fair Motor behavior is: steady gait & station, no abnormal motor movements Speech: normal in rate, rhythm & volume Affect: constricted Mood is: other ("bored") Thought process: goal directed Thought content: reality based without delusions Suicidal thought are: denied, Plan: denied, Intent: denied Homicidal thoughts are: denied Hallucinations: denies auditory, denies visual Cognition: memory grossly intact Intelligence estimated to be: above average Insight: limited Judgement: limited Impression The patient has insight into the fact that his habitual abuse of alcohol is contributing to his depressive symptoms, but does not feel that he has a drinking problem or that he needs to stop drinking, and thinks he can just cut back. He is now refusing substance abuse treatment, and is unwilling to consider psychotropic medications for depression. Ongoing inpatient treatment is indicated as he remains at high risk of harm to himself if the above risk factors are not mitigated, given his very serious suicide attempt on admission, and the fact that nothing has changed with respect to his stressors, his depression, or his drinking. Plan (1) Depression 02/13 - discussed antidepressant options with patient. Brother has a history of Bipolar disorder and anxiety. Reviewed symptoms of a manic episode with patient and he denies symptoms other than overlapping symptoms of anxiety when stressed including racing thoughts and troubles getting to sleep but he denies that he can go extended periods of time with very little sleep and/or have increased energy. Reviewed risk of triggering manic episode or mood becoming more unstable due to family history of Bipolar if antidepressant medication initiated. Reviewed depressant effects of alcohol for up to a month and interference with actions of antidepressant medication. Patient wishes to maintain sobriety for 1 month and reassess for presence of depression after a month of no alcohol use. I reinforced importance of [facility] follow up to reassess for depression as well as to monitor for and encourage sobriety. 02/14 - patient declines to consider an antidepressant medication today but is willing to consider at low dose of Remeron PRN for insomnia as a substitute for Trazodone and reviewed with patient that this medication is classified as an antidepressant. Initiate Remeron at 15mg every bedtime PRN for insomnia. 02/15 - patient has been taking hydroxyzine at bedtime, but does not want to try mirtazapine, declining all antidepressants. Although he reports improved mood, he continues to endorse frequent thoughts of , and admits that nothing has changed with respect to his stressors. He will need a family meeting with parents, in order to review safety concerns and the recommendations for complete abstinence from alcohol and substance abuse treatment. We will also need to determine if he can return to see Dr. Lees, whom he only saw once months ago. (2) Suicidal ideation 02/13 - Reviewed with patient disinhibiting effects of alcohol as well as depressant effects and high rates of alcohol use surrounding suicide attempts. 02/15 - needs to work on safety plan and share with parents and family meeting. (3) Alcohol dependence 02/13 - Brief intervention with patient discussing heavy alcohol use and patient receptive to abstaining from alcohol use and discussed treatment options and patient will consider. Reviewed family history with uncle having history of alcohol use. Patient expresses motivation to stop drinking. He says that the problems of the only time he feels "close to normal" as when he is drinking heavily with friends. When drinking, he says he "comes out of his shell" and becomes funny, active, and relatively happy. 02/14 - The patient's AUDIT score suggests problematic drinking ([place] WHO). Brief intervention was offered and accepted. Intervention was greater than 5 min in length. Brief interventions include: 1. Assess Readiness to Quit, 2. Advise: Help Patient to Reduce or Abstain from Alcohol, 3. Agree: Set Specific, Feasible Goals, 4. Assist: Anticipate barriers, Problem-Solving Solutions. Social work to 5. Arrange: Referrals to appropriate treatment. Summary of intervention: The patient is in precontemplation stage with regards to transtheoretical model of change. The patient is advised to decrease alcohol consumption due to depressant effects and risk of interactions with prescription medications. The patient agreed to outpatient therapy referral including [place] or other alternative program and will be provided with recovery materials to continue to education self on how to cope with their condition without drinking. 02/15 - patient now stating he doesn't think he has a problem with drinking, and plans to continue drinking, but limiting the amount. He is now refusing the recommendations for substance abuse treatment, and is demonstrating very poor insight. Again reviewed with him the recommendations for complete abstinence from alcohol and for intensive outpatient substance abuse treatment. Encouraged him to consider this, and to discuss further with family during his family meeting. (4) Cannabis abuse We discussed the importance of avoiding marijuana use. (5) Tobacco use disorder The patient indicates ambivalent interest in smoking cessation. We are beginning a daily NicoDerm to prevent withdrawal. We'll also giving him Nicorette gum, as needed. Discharge / Aftercare Planning Primary Care Physician: Name: NONE Therapist: Name: NONE Clinical Specialist: Name: NONE Visit Code E&M Code: 06316 Risk Factors Assessment Male: Yes : Yes /single/: Yes Higher / Fall in social status: No Health problems: No Mental Health Diagnoses: Yes Substance use disorders: Yes Previous attempt: Yes Previous attempt;highly lethal: No Previous attempt; planned: Yes Previous attempt; didn't tell: Yes Family history of suicide: No Previous psychiatric stay: No Hopelessness: Yes Smoker: Yes Protective Factors Assessment Muslim beliefs: No : No Responsible for young children: No Employed: Yes Stable relationships: Yes Supportive family: Yes Good rapport with provider: Yes Problem Qualifiers (1) Depression: Depression Type: major depressive disorder Major depression recurrence: recurrent Active/Remission status: currently active Major depression episode severity: severe Psychotic features: without psychotic features Qualified Codes: F33.2 - Major depressive disorder, recurrent severe without psychotic features (2) Alcohol dependence: Substance use status: alcohol-induced mood disorder Qualified Codes: 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
[2017-02-16] MEDS: hydrOXYzine HCL 25 MG TAB PO PRN (23:07)
[2017-02-17 07:04] VITALS: BP_SYST 118; BP_SYST 126; BP_DIAS 79; BP_DIAS 85; PULSE 65; PULSE 77; TEMP 36.4
[2017-02-17] MEDS: NICOTINE 14 MG/24 HR TDSY TD SCH (08:32)
--- NOTE | 2017-02-17 11:17 | Discharge Instructions ---
Discharge Information Report Includes Report will include the: Discharge Instructions & Summary Admission Admission Date / Time: Feb 12, 2017 at 11:54 Reason for Admission: Depression Discharge Discharge Diagnosis / Problem: Depression not otherwise specified, suicide attempt Condition at Discharge: Fair Discharge Goals Goal(s): Improve function, Improve disease control, Learn about illness, Therapeutic intervention, Specific goals (educate about substance abuse and refer for substance abuse treatment) Activity Recommendations Activity Limitations: per Instructions/Follow-up section . Instructions / Follow-Up Instructions / Follow-Up . SPECIAL CARE INSTRUCTIONS: 1. Follow through with your scheduled aftercare appointments. If unable to keep an appointment, please call to reschedule. 2. Take your medication only as prescribed. Medication should not be changed or stopped without the approval of your doctor. In the event of worsening symptoms or concerns about side effects, contact your doctor immediately. 3. Utilize new healthy coping skills, anger management skills, and stress management skills learned during your hospitalization. Journal feelings and process them with a support person. Identify stressors or situations that may result in relapse, deterioration or inappropriate behaviors and develop a plan to deal with those issues. 4. If your coping skills are ineffective and you are in crisis, contact your outpatient providers for direction. If unable to reach your providers, please call the CAN HELP LINE AT or go to the closest Emergency Room. 5. You should not drink alcohol or take un-prescribed drugs. 6. You have been provided with the Mental Health Advance Directives Pamphlet for your review. AFTERCARE APPOINTMENTS: * Please call your insurance company prior to your scheduled appointment to confirm your aftercare providers are covered. Take your insurance information to your appointments. . Discharge / Aftercare Planning Primary Care Physician: Name: NONE Therapist: Name Of Therapist: NONE Sales Representative Printing Paper: Name: NONE . Follow-Up Care Plan for Follow-Up Care: See above - [facility] for substance abuse treatment, and Dr. Lees ( psychiatrist). Current Hospital Diet Patient's current hospital diet: Regular Diet Discharge Diet Recommended Diet: Regular Diet Procedures Procedures Performed: No Pending Studies Pending Studies at Discharge: No Medical Emergencies . Who to Call and When: Medical Emergencies: For questions or emergencies related to your hospital stay, please contact the Inpatient Behavioral Health Unit at [phone]. A numerical control router operator is on-call 24/7 for the Behavioral Health Unit for emergencies At any time you feel your situation is an emergency, you may also call 911 immediately. . Non-Emergent Contact Non-Emergency issues call your: Psychiatrist, Therapist Past History Medical & Surgical History: (1) Alcohol dependence (2) Cannabis abuse (3) Tobacco use disorder Advance Directives Existing Advance Directive: No Do You Have an Existing Mental: No Existing Living Will: No Existing Power of Selector Packer: No Advance Directives Info Given: To Pt/S.O. Advance Directives Reason: Declines as Mental Health Visit. Discharge Summary Admission HPI Per the Admitting provider: The patient is a 26-year-old man who was admitted to the inpatient psychiatric unit this afternoon from the emergency department. According to the patient, and according to the record, the patient had been drinking heavily last night and, while intoxicated, decided to make a suicide attempt by hanging himself with a belt. He says that he had actually formed a noose belt and had wrapped around his neck. However, he was also on the telephone with a suicide hotline, reported ambivalence, and provided his home address to the suicide hotline. The police responded and transported the patient to the emergency department. The patient reports that he has been feeling depressed, 2 various extents, for approximately 9 years. He says that when he was a sophomore in high school and his family moved from [place], near [place] [facility], and he became depressed after losing all of his friends and being "the new kid." He says that since that time he has had recurrent thoughts of suicide, although he says that these thoughts are usually not associated with any plan or intent. He does say that several months ago he took a deliberate overdose of medications, but then very quickly changed his mind and induced emesis. This attempt evidently went unreported. He denies any other suicide attempts, apart from the episode of overdose and the episode that immediately preceded the admission. Reported symptoms of depression include apathetic, anergy, anhedonia (unless drinking with friends), depressed mood, and chronic initial insomnia. He also describes frequent rumination and self-reproachment. The clinical picture is his complicated by the fact that the patient acknowledges a long-standing history of heavy use of alcohol. He says that he drinks 4 or 5 nights a week, and consumes alcohol in quantities that range from 5-8 mixed drinks drinks per episode. He says that typically he drinks to the point of intoxication. On the evening prior to admission the patient reports that he drank several "[place] iced teas," as well as several rum and Coke drinks, and several other alcoholic beverages. He says that his drinks of choice include Rum, whiskey, and beer. In addition, he smokes marijuana fairly regularly, sometimes daily, and when using he consumes about a joint" per episode. He enjoys the support of his parents who live locally, his girlfriend , who lives out of town for the summer, as well as a number of other friends. 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 He says that initially he did fairly well and maintained a 3.2 average, but in the past year or so has been going to classes less and less, and eventually dropped out earlier this spring after he had stopped going to classes completely. He is currently in treatment with an outpatient psychiatrist and has been prescribed trazodone for sleep and an antidepressant that he believes may be Lexapro, although he is not taking the Lexapro because he does not feel that it helps. ("I took it for about 3 weeks, but it wasn't doing anything."). He says the trazodone does help him sleep. Admission Exam Per the Admitting provider: Please see admission H&P. Hospital Course (1) Depression 02/13 - Discussed antidepressant options with patient. Brother has a history of Bipolar disorder and anxiety. Reviewed symptoms of a manic episode with patient and he denies symptoms other than overlapping symptoms of anxiety when stressed including racing thoughts and troubles getting to sleep but he denies that he can go extended periods of time with very little sleep and/or have increased energy. Reviewed risk of triggering manic episode or mood becoming more unstable due to family history of Bipolar if antidepressant medication initiated. Reviewed depressant effects of alcohol for up to a month and interference with actions of antidepressant medication. Patient wishes to maintain sobriety for 1 month and reassess for presence of depression after a month of no alcohol use. I reinforced importance of custodial follow up to reassess for depression as well as to monitor for and encourage sobriety. 02/14 - Patient declines to consider an antidepressant medication today but is willing to consider at low dose of Remeron PRN for insomnia as a substitute for Trazodone and reviewed with patient that this medication is classified as an antidepressant. Initiate Remeron at 15mg every bedtime PRN for insomnia. 02/15 - Patient has been taking hydroxyzine at bedtime, but does not want to try mirtazapine, declining all antidepressants. Although he reports improved mood, he continues to endorse frequent thoughts of , and admits that nothing has changed with respect to his stressors. He will need a family meeting with parents, in order to review safety concerns and the recommendations for complete abstinence from alcohol and substance abuse treatment. We will also need to determine if he can return to see Dr. Lees, whom he only saw once months ago. 02/17 - Continues to report good mood here, denying SI, minimizing suicide attempt. Arrange f/u with Dr. Lees and send records. (2) Suicidal ideation He reports that he had had suicidal thoughts, mostly without any plan or intent , on a daily basis for as many as nine years. He needs to develop coming skills that do not involve getting intoxicated, and I am emphasizing that alcohol use makes treatment of depression difficult because it: Causes and worsens depression, and it interferes with antidepressant medication efficacy. 02/13 - Reviewed with patient disinhibiting effects of alcohol as well as depressant effects and high rates of alcohol use surrounding suicide attempts. 02/15 - Needs to work on safety plan and share with parents and family meeting. 02/17 - Consistently denying suicidality here. Reviewed safety plan. (3) Alcohol dependence 02/13 - Brief intervention with patient discussing heavy alcohol use and patient receptive to abstaining from alcohol use and discussed treatment options and patient will consider. Reviewed family history with uncle having history of alcohol use. Patient expresses motivation to stop drinking. He says that the problems of the only time he feels "close to normal" as when he is drinking heavily with friends. When drinking, he says he "comes out of his shell" and becomes funny, active, and relatively happy. 02/14 - The patient's AUDIT score suggests problematic drinking (Zone III WHO). Brief intervention was offered and accepted. Intervention was greater than 5 min in length. Brief interventions include: 1. Assess Readiness to Quit, 2. Advise: Help Patient to Reduce or Abstain from Alcohol, 3. Agree: Set Specific, Feasible Goals, 4. Assist: Anticipate barriers, Problem-Solving Solutions. Social work to 5. Arrange: Referrals to appropriate treatment. Summary of intervention: The patient is in precontemplation stage with regards to transtheoretical model of change. The patient is advised to decrease alcohol consumption due to depressant effects and risk of interactions with prescription medications. The patient agreed to outpatient therapy referral including [facility] or other alternative program and will be provided with recovery materials to continue to education self on how to cope with their condition without drinking. 02/15 - patient now stating he doesn't think he has a problem with drinking, and plans to continue drinking, but limiting the amount. He is now refusing the recommendations for substance abuse treatment, and is demonstrating very poor insight. Again reviewed with him the recommendations for complete abstinence from alcohol and for intensive outpatient substance abuse treatment. Encouraged him to consider this, and to discuss further with family during his family meeting. 02/17 - patient agreed to the patient agreed to a referral to [facility] for substance abuse treatment during his family meeting. He has been advised multiple times of the risks of ongoing substance abuse and the recommendations that he abstain from alcohol use, which he is dismissive of. He also abuses cannabis and stimulants, and would recommend that he not be prescribed controlled substances due to the risk of abuse. (4) Cannabis abuse We discussed the importance of avoiding marijuana use. 02/17 - again reviewed the risks of ongoing substance abuse with the patient, including worsening mood, suicidality, negative effects on concentration and motivation, health problems, addiction, and increased risk of suicide. Reviewed the recommendations that he abstain completely from drugs of abuse, alcohol, and medications that are not his or are addictive or abusable. Referral to [facility] for substance abuse treatment as above. (5) Tobacco use disorder The patient indicates ambivalent interest in smoking cessation. We are beginning a daily NicoDerm to prevent withdrawal. We'll also giving him Nicorette gum, as needed. 02/17 - patient declines information about smoking cessation or prescription for nicotine replacement at discharge, stating he plans to resume smoking. (6) Narcissistic Personality Traits Rule out narcissistic personality disorder. During hospitalization, patient demonstrated a sense of entitlement, lack of empathy, arrogance, and a grandiose sense of self-importance. Risk Factors Assessment Male: Yes : Yes /single/: Yes Higher / Fall in social status: No Access to guns: No (mother confirmed the patient does not have access to guns) Health problems: No Mental Health Diagnoses: Yes Substance use disorders: Yes Previous attempt: Yes Previous attempt;highly lethal: No Previous attempt; planned: Yes Previous attempt; didn't tell: Yes Family history of suicide: No Previous psychiatric stay: No Hopelessness: Yes Smoker: Yes Protective Factors Assessment Confucianist beliefs: No : No Responsible for young children: No Employed: Yes Stable relationships: Yes Supportive family: Yes Good rapport with provider: Yes Absence of risk factors above: Yes (risk factors were mitigated by admission to the inpatient unit, monitoring for symptoms of major depressive disorder, educating the patient on the risks of ongoing substance abuse and the recommendations for abstinence and substance abuse treatment, involving his family, referring him for substance abuse treatment, involving him in groups and therapy, working on healthy coping skills and his discharge safety plan. He minimized mood symptoms and his suicide attempt, and consistently denied symptoms of depression and suicidality throughout his stay. He was dismissive of recommendations that he stop drinking and abusing other substances, but after his family meeting, was willing for a referral to [facility] for outpatient substance abuse treatment. He attended and participated in groups and therapy, interacted appropriately with staff and peers, and was noted to be performing his ADLs independently. He was anxious for discharge throughout his stay, stating that he needed to get out so he could return to work. He is consistently denied thoughts of harming himself or others, is requesting discharge, and as he is no longer at acute risk of harm to himself, can be managed as an outpatient at this time. He does remain at increased risk of suicide compared to the general population due to his substance abuse, which he has poor insight into, as well as his personality disorder; however these risk factors are not likely amenable to further inpatient treatment, and he is not currently at imminent risk of harm to himself.) Day of Discharge Assessment Hospital course: The patient's mood improved shortly after admission, and he was able to discuss his chronic suicidal thoughts, which he states that been present for about 6 years, are daily and transient, lasting minutes, and consist of thinking about different ways one could commit suicide. He denied any specific plan or intent to harm himself, stating that his family is protective. He minimized his suicide attempt prior to admission, blaming it on intoxication. Multiple attempts were made to discuss the risks of ongoing alcohol abuse, but he was dismissive, feeling that he would be fine if he just cut back on his use and did not drink alone. He admitted to drinking 5-6 drinks 4-5 days a week, and on the night of admission had consumed a pitcher of rum and Coke, a punch bowl of beer, and 4-5 [place] iced teas. Although mirtazapine was ordered as needed for sleep, he never took it. He did use hydroxyzine 50 mg at bedtime several times, but declined a prescription on discharge, feeling he would not need it. He said he no longer wanted to take trazodone, as he read that it could cause impotence. He demonstrated very poor insight, stating he did not need substance abuse treatment, and perseverated on being discharged so he can return to work. He initially declined involving his parents in treatment, but ultimately agreed to a family meeting, which was held with his mother by phone on 02/16/2017. During the meeting, the patient said he was frustrated to be in the hospital, and wanted to be discharged as soon as possible. His mother encouraged him to take time to focus on his mental health, and he said he was annoyed that people were worried about him. He often looked away and rolled his eyes during the meeting, and moved his chair away from the phone. He said he was going to try not drinking for a month to see how it goes, and his mother encouraged him to accept more formal treatment for his substance abuse issues. Much of the meeting was spent discussing treatment options, and he ultimately agreed to a referral to intensive outpatient treatment at [facility]. He also stated he preferred to continue seeing Dr. Lees, whom he had only seen once in October. His mother stated that she was disappointed in him that he had been lying, saying that he was going to classes and that everything was fine. He admitted to decreased motivation, apathy, and indifference to having goals in his life. Mother shared that he had been abusing Adderall the year prior, as well as drinking and smoking cannabis. Mother confirmed he did not have access to a gun at home. The patient left the meeting abruptly and seemed angry. Staff noted an underlying irritability and poor engagement in treatment. A grandiose sense of self-importance, sense of entitlement, lack of empathy, and arrogant behaviors were also noted, and narcissistic personality traits with added. Day of discharge assessment: The patient states that his mood is "Pretty good. I laid a good foundation for getting out of here and living a healthy, productive life." He says he plans to "checkout [facility], if it's not for me, it's not for me." He says his plan to address his addiction issues are to "#1 rule, don't drink alone." We again reviewed the recommendations for complete abstinence from alcohol, illicit drugs, and prescription medications, and for substance abuse treatment to address these issues. He is dismissive of recommendations. He denies suicidal thoughts, and minimizes his suicide attempt prior to admission. He denies symptoms of depression and anxiety. He denies any concerns with being discharged today, stating he is excited to get out of the hospital and return to work. Well nourished, well developed WM appearing stated age. Casually dressed and adequately groomed. Calm and cooperative. Seated in NAD, with fair eye contact and no abnormal movements. Speech is normal rate, volume, and tone. Mood is "pretty good," and affect is stable and congruent. Thoughts are linear , logical and goal directed. The patient denied suicidal and homicidal ideation and was able to safety plan. No paranoia, delusions, or hallucinations , and did not appear to be responding to internal stimuli. Cognition was grossly intact. Alert and oriented to person, place and time. Intelligence is consistent with level of education. Insight is limited, and judgment is fair. Laboratory Test 02/12/17 00:00 02/12/17 07:20 Urine Color YELLOW Urine Appearance CLEAR Urine pH 6.0 Urine Specific [place] 1.020 Urine Protein NEG Urine Glucose (UA) NEG Urine Ketones NEG Urine Occult Blood NEG Urine Nitrite NEG Urine Bilirubin NEG Urine Urobilinogen NEG Urine Leukocyte Esterase NEG Urine Opiates Screen NEG Urine Methadone, Qualitative NEG Urine Barbiturates NEG Urine Phencyclidine (PCP) Level NEG Ur Amphetamine/Methamphetamine NEG MDMA (Ecstasy) Screen NEG Urine Benzodiazepines Screen NEG Urine Cocaine Metabolite NEG Urine Marijuana (THC) NEG White Blood Count 7.33 Red Blood Count 5.79 Hemoglobin 16.7 Hematocrit 50.0 Mean Corpuscular Volume 86.4 Mean Corpuscular Hemoglobin 28.8 Mean Corpuscular Hemoglobin Concent 33.4 RDW Standard Deviation 40.1 RDW Coefficient of Variation 12.6 Platelet Count 233 Mean Platelet Volume 9.9 Sodium Level 146 Potassium Level 3.2 Chloride Level 110 Carbon Dioxide Level 22 Anion Gap 14.0 Blood Urea Nitrogen 10 Creatinine 0.96 Est Creatinine Clear Calc Drug Dose 122.5 Estimated GFR () 127.7 Estimated GFR (Non- 110.2 BUN/Creatinine Ratio 10.6 Random Glucose 101 Calcium Level 8.0 Total Bilirubin 0.2 Aspartate Amino Transferase (AST) 35 Alanine Aminotransferase (ALT) 55 Alkaline Phosphatase 84 Total Protein 7.2 Albumin 3.9 Globulin 3.3 Albumin/Globulin Ratio 1.2 Thyroid Stimulating Hormone (TSH) 1.120 Chemistry Specimen Hemolysis Ethyl Alcohol mg/dL 146.0 Total Time Total Time Spent (min): Greater than 30 minutes Total Time Included: examination of the patient, discharge planning, medication reconciliation Tobacco Cessation at Discharge Smoking Status: Current Every Day Smoker FDA approved Prescription: declined med & out pt counseling (patient states he plans to resume smoking after discharge) Problem Qualifiers (1) Depression: Depression Type: major depressive disorder Major depression recurrence: recurrent Active/Remission status: currently active Major depression episode severity: severe Psychotic features: without psychotic features Qualified Codes: F33.2 - Major depressive disorder, recurrent severe without psychotic features (2) Alcohol dependence: Substance use status: alcohol-induced mood disorder Qualified Codes: 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
== END 2017-02-17 13:05 | disposition home or self-care (01) | DRG 885 ==
LOC: EDBD 06:13 → C.EDA 06:15 → C.MHU 11:54
PROVIDERS: ADMIT Psychiatry & Neurology Child & Adolescent Psychiatry; ATTEND Psychiatry & Neurology Child & Adolescent Psychiatry
DX: F33.2 Major depressive disorder, recurrent severe without psychotic features (principal); F10.24 Alcohol dependence with alcohol-induced mood disorder; F17.200 Nicotine dependence, unspecified, uncomplicated; F12.10 Cannabis abuse, uncomplicated